=== PATIENT | female | born 1965 | race Caucasian/White ===

== ENCOUNTER 2025-05-20 09:45 | Outpatient (AMB) | payer OTHER, SELFPAY ==
[2025-05-20 10:05] VITALS: BMI 24.7
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
== END 2025-05-20 10:32 | disposition home or self-care (01) ==
LOC: HO.HPODS 09:45
PROVIDERS: Visit Provider Student in an Organized Health Care Education/Training Program
DX: R23.4 Changes in skin texture (principal)
CPT/HCPCS: 11056; 99204

== ENCOUNTER → 2025-05-20 | Outpatient (BNVA) | payer OTHER, SELFPAY | PROVIDERS: Visit Provider Student in an Organized Health Care Education/Training Program | DX: R23.4 Changes in skin texture (principal); L84 Corns and callosities; M21.70 Unequal limb length (acquired), unspecified site | CPT/HCPCS: 11056 ==